=== PATIENT | male | born 1955 | race Caucasian/White ===

== ENCOUNTER 2017-09-23 07:32 | Emergency (ER) | payer OTHER, SELFPAY ==
--- NOTE | 2017-09-23 07:34 | ED.ABDPAIN ---
HPI - Abdominal Pain General Chief Complaint: Abdominal Pain Stated Complaint: RIGHT SIDE ABDOMINAL PAIN Time Seen by Provider: 09/23/17 07:32 Source: patient Mode of arrival: ambulatory Limitations: no limitations History of Present Illness HPI narrative: 62-year-old male with a history of testicular cancer 30 years ago with an exploratory lap 30 years ago not currently under treatment here for evaluation of right sided flank and right-sided CVA tenderness. Patient states that it started off several days ago. Had episodes where he was pain free but then the pain spike. He states that it seems to be associated to increases in pain after he eats. He states that over the past 24 hr he now has a constant right-sided pain that occasionally spikes not associated with eating. Had 1 episode of vomiting. This nauseous occasionally but has not vomited since that 1 episode. No change in stool. No change in urine. No skin rashes. No recent travel. Has tried Motrin at home for it without any improvement Related Data Home Medications Medication Instructions Recorded Confirmed cholecalciferol (vitamin D3) 1,000 unit PO DAILY 09/23/17 09/23/17 [Vitamin D3] Previous Rx's Medication Instructions Recorded hydrocodone-acetaminophen [[place]] 1 tab PO Q4-6H PRN #14 tab 09/23/17 ondansetron [Zofran ODT] 4 mg PO Q6-8H PRN #10 tab 09/23/17 Allergies Allergy/AdvReac Type Severity Reaction Status Date / Time Iodine and Iodide Containing Allergy Verified 09/23/17 07:49 Produc Review of Systems Constitutional Denies fatigue, Denies fever(s), Denies lethargy and Denies malaise ENT Ears, Nose, Mouth, and Throat: Denies dizziness Cardiovascular Denies chest pain, Denies syncope, Denies palpitations and Denies dyspnea Respiratory Denies cough and Denies dyspnea Gastrointestinal Gastrointestinal: Reports abdominal pain, Denies melena, Denies bloating, Denies change in stool character, Denies constipation, Denies diarrhea, Reports nausea and Reports vomiting Genitourinary Denies dysuria and Denies flank pain Musculoskeletal Denies myalgias and Denies arthralgias Integumentary/Breasts Denies lesions and Denies rash Neurologic Denies dizziness and Denies syncope Endocrine Denies fatigue and Denies palpitations Hematologic/Lymphatic Denies easy bleeding and Denies easy bruising Allergic/Immunologic Denies urticaria PFSH Social History Smoking Status: Never smoker Exam Initial Vital Signs Initial Vital Signs: Vital Signs Temperature 99.1 F 09/23/17 07:45 Pulse Rate 101 H 09/23/17 07:45 Respiratory Rate 20 09/23/17 07:45 Blood Pressure 132/85 H 09/23/17 07:45 Pulse Oximetry 99 09/23/17 07:45 Const General: cooperative, healthy appearing, comfortable, well developed, well groomed and No acute distress Nutritional Appearance: average body habitus Orientation: alert, awake and oriented x3 HENMT Head: normal to inspection, normocephalic and atraumatic Chest Chest: normal inspection of the chest Resp Effort & Inspection: normal respiratory effort Auscultation: clear to auscultation bilaterally Cardio Rate: regular rate Rhythm: regular rhythm Pulses: radial pulses present GI Inspection: normal to inspection and non-distended Palpation: soft, No firm and No tender Back/Spine/Pelvis Back: CVA tenderness (Points to his right CVA is area of tenderness however has no tenderness on my exam) Skin Lesions: no lesions Rashes: no rashes Wounds: no wounds Neuro General: alert, awake and oriented x3 Cognition: normal cognition Speech: speech normal Gait: normal gait Motor: muscle tone normal throughout Sensory Exam: no sensory deficits noted Extrem General: normal to inspection, capillary refill normal and normal exam except as noted Psych Appearance: grossly normal and well kempt Course Orders Ordered: ED Orders 09/23/17 07:44 US abdomen complete Stat 09/23/17 07:55 Complete Blood Count AUTO DIFF Stat Comprehensive Metabolic Panel Stat Lipase Stat 09/23/17 08:38 Urine Microscopic Stat Vital Signs - 8 hr 09/23/17 07:45 Temperature 99.1 F Pulse Rate 101 H Respiratory Rate 20 Blood Pressure 132/85 H Pulse Oximetry 99 MDM - Abdominal Pain Lab Data Attestation: I reviewed the patient's lab results. Result diagrams: 09/23/17 07:55 09/23/17 07:55 Lab Results 09/23/17 09/23/17 Range/Units 07:55 07:55 WBC 11.6 H (4.5-11.0) X10^3/uL RBC 5.26 (4.5-5.9) X10^6/uL Hgb 16.5 (13.5-17.5) g/dL Hct 47.4 (41-53) % MCV 90.1 (80-100) fL MCH 31.4 (26-34) PG MCHC 34.8 (30-36) % RDW 13.5 (11.6-14.8) % Plt Count 288 (150-400) X10^3/uL Neut % (Auto) 72.3 (50-75) % Lymph % (Auto) 15.3 L (25-40) % [place] % (Auto) 11.3 (3-14) % Eos % (Auto) 0.5 L (2-4) % Baso % (Auto) 0.6 (0-2) % Neut # (Auto) 8400 H (3922-7293) /uL Sodium 142 (137-145) mmol/L Potassium 4.1 (3.4-5.1) mmol/L Chloride 105 (98-107) mmol/L Carbon Dioxide 25 (22-32) mmol/L BUN 23 H (9-20) mg/dL Creatinine 1.30 H (0.66-1.25) mg/dL Estimated GFR 56.1 L (>60) mL/min BUN/Creatinine Ratio 17.7 (6-22) Glucose 107 (80-110) mg/dL Calcium 9.3 (8.4-10.2) mg/dL Total Bilirubin 1.5 H (0.2-1.3) mg/dL AST 38 (17-59) IU/L ALT 56 (21-72) IU/L Alkaline Phosphatase 53 (38-126) U/L Total Protein 7.5 (6.3-8.2) g/dL Albumin 4.2 (3.5-5.0) g/dL Globulin 3.3 (1.7-4.1) g/dL Albumin/Globulin Ratio 1.3 (1.0-2.8) Lipase 107 (23-300) U/L Point of care testing: Urine Dip Bedside Urine Glucose Negative Bedside Urine Bilirubin + 1 Bedside Urine Ketone ++ 40 Urine Specific [place] 1.030 Bedside Urine Occult Blood - Negative Bedside Urine pH 6.0 Bedside Urine Protein + 30 Bedside Urine Urobilinogen - Negative Bedside Urine Nitrite - Negative Bedside Urine Leukocytes - Negative Esterase Imaging Data US - abdomen: Radiologist's impression: PROCEDURE: US ABDOMEN COMPLETE INDICATIONS: PAIN TECHNIQUE: Real-time scanning was performed of the abdominal and retroperitoneal organs, with image documentation. COMPARISON: None. FINDINGS: Liver: Liver is normal in size and mildly hyperechoic in echotexture. Gallbladder: Gallbladder contains numerous dependent stones up to 1 cm in size.. Gallbladder wall thickness is normal however there is a positive Cadena sign reported by the technologist. Biliary ducts: Intrahepatic bile ducts are non-dilated. Extrahepatic bile duct caliber measures 5.0 mm. Normal is 6-7 mm or less in diameter, or 10 mm or less post-cholecystectomy. Pancreas: Visualized portions of the pancreas are sonographically normal. Spleen: Spleen is normal in size and homogeneous in echotexture. Kidneys: Kidneys are normal in size and echotexture. Right kidney measures 13.6 cm long; left kidney measures 13.8 cm long. No hydronephrosis or nephrolithiasis. No solid masses. Aorta: Visualized aorta is normal in caliber at less than 3 cm. proximal aorta is obscured. Iliacs: Proximal common iliac arteries are normal in caliber at less than 2.5 cm. IVC: Intrahepatic inferior vena cava is patent. Miscellaneous: No free abdominal fluid. IMPRESSION: 1. Cholelithiasis. Possible acute cholecystitis without measurable wall thickening or edema. Correlate clinically. Normal common bile duct. 2. Mild hepatic steatosis. Dictated by: Navjot Salamanca M.D. on 09/23/2017 at 8:33 MDM Narrative Medical decision making narrative: Patient with ultrasound consistent with gallbladder disease. This also fits with his history and physical exam. Normal duct and normal gallbladder wall thickening. Has a relatively benign exam today. White blood cell count only slightly elevated. Will hold on consultation for General surgery now. Will try oral pain medication and nausea medication and outpatient general surgery consult to have his gallbladder removed. I did discuss this with the patient. He has normal liver function tests and normal lipase. He was given return precautions to include worsening pain, symptoms that are not controlled, fevers, inability to tolerate oral intake. If he returns with worsening symptoms or symptoms that do not improve with medication would consider consultation to General surgery at that time for symptomatic cholelithiasis/cholecystitis. Patient and his who is at bedside expressed understanding and agreement with this plan. Discharge Plan Departure Instructions: Gallstones (Alternative Therapy), DI for Gallstones Activity Restrictions/Additional Instructions: Recommend that you make contact with a primary care doctor for future medical issues. You can contact the [facility] office at [phone] for a follow-up outpatient consultation to discuss the indications to have your gallbladder removed. Take the medication as directed. Return to the emergency department for any new symptoms, worsening symptoms, pain that is not controlled, fevers, inability to tolerate oral intake or any other worsening symptoms. Prescriptions: New hydrocodone-acetaminophen [[place]] 5-325 mg tablet 1 tab PO Q4-6H PRN (Reason: pain) Qty: 14 RF: 0 ondansetron [Zofran ODT] 4 mg tablet,disintegrating 4 mg PO Q6-8H PRN (Reason: nausea and vomiting) Qty: 10 RF: 0 No Action cholecalciferol (vitamin D3) [Vitamin D3] 1,000 unit Capsule 1,000 unit PO DAILY RF: 0
--- NOTE | 2017-09-23 07:44 | DI.US.S_ITS ---
PROCEDURE: US ABDOMEN COMPLETE INDICATIONS: PAIN TECHNIQUE: Real-time scanning was performed of the abdominal and retroperitoneal organs, with image documentation. COMPARISON: None. FINDINGS: Liver: Liver is normal in size and mildly hyperechoic in echotexture. Gallbladder: Gallbladder contains numerous dependent stones up to 1 cm in size.. Gallbladder wall thickness is normal however there is a positive Cadena sign reported by the technologist. Biliary ducts: Intrahepatic bile ducts are non-dilated. Extrahepatic bile duct caliber measures 5.0 mm. Normal is 6-7 mm or less in diameter, or 10 mm or less post-cholecystectomy. Pancreas: Visualized portions of the pancreas are sonographically normal. Spleen: Spleen is normal in size and homogeneous in echotexture. Kidneys: Kidneys are normal in size and echotexture. Right kidney measures 13.6 cm long; left kidney measures 13.8 cm long. No hydronephrosis or nephrolithiasis. No solid masses. Aorta: Visualized aorta is normal in caliber at less than 3 cm. proximal aorta is obscured. Iliacs: Proximal common iliac arteries are normal in caliber at less than 2.5 cm. IVC: Intrahepatic inferior vena cava is patent. Miscellaneous: No free abdominal fluid. IMPRESSION: 1. Cholelithiasis. Possible acute cholecystitis without measurable wall thickening or edema. Correlate clinically. Normal common bile duct. 2. Mild hepatic steatosis. Dictated by: Navjot Salamanca M.D. on 09/23/2017 at 8:33 Approved by: Navjot Salamanca M.D. on 09/23/2017 at 8:37
[2017-09-23 07:45] VITALS: BP 132/85; PULSE 101; RESP 20; TEMP 37.3; O2SAT 99; BMI 28.8
[2017-09-23 08:09] LABS: Add Manual Diff / Slide Review NO; Basophils Percent Auto 0.6 % (0-2); Eosinophils Percent Auto 0.5 % (2-4); Hematocrit 47.4 % (41-53); Hemoglobin 16.5 g/dL (13.5-17.5); Lymphocytes Percent Auto 15.3 % (25-40); Mean Corpuscular HGB Conc 34.8 % (30-36); Mean Corpuscular Hemoglobin 31.4 PG (26-34); Mean Corpuscular Volume 90.1 fL (80-100); Monocytes Percent Auto 11.3 % (3-14); Neutrophils Absolute Auto 8400 /uL (3000-5900); Neutrophils Percent Auto 72.3 % (50-75); Platelet Count 288 X10^3/uL (150-400); Red Blood Cell Count 5.26 X10^6/uL (4.5-5.9); Red Cell Distribution Width 13.5 % (11.6-14.8); White Blood Cell Count 11.6 X10^3/uL (4.5-11.0)
[2017-09-23 08:14] LABS: Alanine Aminotransferase 56 IU/L (21-72); Albumin 4.2 g/dL (3.5-5.0); Albumin Globulin Ratio 1.3 (1.0-2.8); Alkaline Phosphatase 53 U/L (38-126); Aspartate Aminotransferase 38 IU/L (17-59); BUN Creatinine Ratio 17.7 (6-22); Bilirubin Total 1.5 mg/dL (0.2-1.3); Blood Urea Nitrogen 23 mg/dL (9-20); Calcium 9.3 mg/dL (8.4-10.2); Carbon Dioxide 25 mmol/L (22-32); Chloride 105 mmol/L (98-107); Estimated Glomerular Filt Rate 56.1 mL/min (>60); Globulin 3.3 g/dL (1.7-4.1); Glucose 107 mg/dL (80-110); HEMOLYSIS 42 (0-50); Lipase 107 U/L (23-300); Potassium 4.1 mmol/L (3.4-5.1); Sodium 142 mmol/L (137-145); Total Protein 7.5 g/dL (6.3-8.2)
[2017-09-23 08:57] VITALS: BP 135/79; PULSE 56; RESP 15; O2SAT 99
[2017-09-23] MEDS: HYDROCODONE/ACET 5/325 TABLET 1 TAB PO (08:58)
[2017-09-23 09:10] LABS: Bacteria Urine Few (2-10); Culture Indicated Urine Cult Not Indicated; Mucus Urine 2+ (Negative); RBC Urine 1-5/HPF (0-5/HPF); Squamous Epithelial Cell Urine 1-5 /HPF; WBC Urine 1-5/HPF (0-5/HPF)
[2017-09-23 09:11] LABS: Ictotest Urine Negative (Negative)
== END 2017-09-23 09:12 | disposition home or self-care (01) ==
PROVIDERS: Emergency Provider Emergency Medicine
DX: K80.20 Calculus of gallbladder without cholecystitis without obstruction (principal)
CPT/HCPCS: 76700; 80053; 81003; 81015; 83690; 85025; 99282; 99284